=== PATIENT | male | born 1985 | race Caucasian/White ===

== ENCOUNTER → 2018-10-21 | Emergency (ER) | payer MEDICAID, OTHER ==
[2018-10-21 22:13] LABS: ADD MAN DIFF? NO
[2018-10-21 22:15] LABS: WHITE BLOOD COUNT 9.3 10^3/ul (4.8-10.8)
[2018-10-21 22:15] LABS: BASOPHIL # 0.1 10^3/ul (0.0-0.1); BASOPHILS % 0.6 % (0.0-2.0); EOSINOPHILS # 0.1 10^3/ul (0.0-0.5); EOSINOPHILS % 0.8 % (0.0-7.0); HEMATOCRIT 46.6 % (42.0-52.0); HEMOGLOBIN 15.5 g/dl (14.0-18.0); LYMPHOCYTES # 2.3 10^3/ul (0.8-2.9); LYMPHOCYTES % 24.8 % (15.0-51.0); MEAN CORPUSCULAR HEMOGLOBIN 27.2 pg (29.0-33.0); MEAN CORPUSCULAR HGB CONC 33.3 g/dl (32.0-37.0); MEAN CORPUSCULAR VOLUME 81.9 fl (82.0-101.0); MEAN PLATELET VOLUME 10.1 fl (7.4-10.4); MONOCYTE # 0.4 10^3/ul (0.3-0.9); MONOCYTES % 4.5 % (0.0-11.0); NEUTROPHIL # 6.4 10^3/ul (1.6-7.5); NEUTROPHILS % 68.9 % (39.0-77.0); PLATELET COUNT 330 10^3/UL (140-415); RED BLOOD COUNT 5.69 10^6/ul (4.70-6.10); RED CELL DISTRIBUTION WIDTH 12.9 % (11.5-14.5)
[2018-10-21] MEDS: ONDANSETRON 4 MG INJ IV (22:16)
[2018-10-21] MEDS: SOD CHLORIDE 0.9% 1,000 ML IV (22:16)
[2018-10-21] MEDS: DIPHTH/TET/ACEL PERTUSS (ADULT) 0.5 ML VIAL IM* (22:17)
[2018-10-21] MEDS: KETOROLAC 15 MG INJ IV (22:17)
[2018-10-21 22:31] LABS: ANION GAP 10 (5-13); BLOOD UREA NITROGEN 11 mg/dl (7-20); CARBON DIOXIDE 25 mmol/L (21-31); CHLORIDE 111 mmol/L (97-110); CREATININE 0.78 mg/dl (0.61-1.24); Estimated GFR > 60 mL/min (>60); GLUCOSE 111 mg/dl (70-220); POTASSIUM 4.1 mmol/L (3.5-5.1); SODIUM 146 mmol/L (135-144)
[2018-10-21] MEDS: LIDOCAINE 1% (MPF) 30 ML INJ INJ (22:37)
== END | disposition home or self-care (01) ==
LOC: E/R 20:41
DX: S01.511A Laceration without foreign body of lip, initial encounter (principal); F17.210 Nicotine dependence, cigarettes, uncomplicated; Y04.8XXA Assault by other bodily force, initial encounter; Z23 Encounter for immunization
CPT/HCPCS: 12013; 36415; 80048; 85025; 90471; 90715; 96374; 96375; 99284-25

== ENCOUNTER 2018-10-23 20:44 | Emergency (ER) | payer MEDICAID | END 2018-10-24 00:48 | disposition home or self-care (01) | LOC: FTE 20:44 | DX: S01.511D Laceration without foreign body of lip, subsequent encounter (principal); F17.210 Nicotine dependence, cigarettes, uncomplicated; X58.XXXD Exposure to other specified factors, subsequent encounter; Y92.9 Unspecified place or not applicable | CPT/HCPCS: 99281; Z7502 ==

== ENCOUNTER 2018-10-27 06:48 | Emergency (ER) | payer MEDICAID | END 2018-10-27 09:41 | disposition home or self-care (01) | LOC: FTE 06:48 | DX: Z48.02 Encounter for removal of sutures (principal); F17.210 Nicotine dependence, cigarettes, uncomplicated | CPT/HCPCS: 99281 ==